=== PATIENT | female | born 1960 | race African-American/Black ===

== ENCOUNTER 2017-07-26 22:34 | Observation (INO) | payer MEDICAID ==
[~2017-07-26] VITALS: Ht 165.1 cm; Wt 80.7 kg
[~2017-07-26 22:34] MED LIST: ALBU18HF2 IH; CYCL10TA7 PO; DOCU-138 PO; FAMO20TA8 PO; FLONAS NS; FOLI-43 PO; FURO-152 PO; LORA10TA7 PO; QUET200T PO
[2017-07-26] MEDS ORDERED: ALBUTEROL (0.083%) 2.5MG/3ML NEB HHN STA (22:57)
[2017-07-26] MEDS ORDERED: IPRATROPIUM BROMIDE (0.02%) 0.5MG/2.5ML NEB HHN STA (22:57)
[2017-07-26] MEDS ORDERED: METHYLPREDNISOLONE SOD SUCC 125 MG/2 ML VIAL IV STA (22:57)
[2017-07-26] MEDS ORDERED: MAGNESIUM 2 G PREMIX 50 ML IV ONE (23:00)
[2017-07-26] MEDS ORDERED: ASPIRIN 81MG TABLET PO ONE (23:00)
[2017-07-26] MEDS ORDERED: NITROGLYCERIN 0.4MG TABLET SL SL PRN (23:00)
[2017-07-26] MEDS ORDERED: ALBUTEROL (0.083%) 2.5MG/3ML NEB ONE (23:17)
[2017-07-26 23:23] LABS: BASOPHILS % 0.7 % (0.0-2.0); EOSINOPHILS % 3.7 % (0.0-5.0); HEMATOCRIT. 39.2 % (36.0-48.0); LYMPHOCYTES % 47.2 % (20.0-50.0); MEAN CORPUSCULAR HEMOGLOBIN 30.7 pg (28.0-32.0); MEAN CORPUSCULAR VOLUME 92.7 fL (81.0-99.0); MEAN PLATELET VOLUME 8.4 fl (7.4-10.4); MONOCYTES % 6.5 % (2.0-8.0); NEUTROPHILS % 41.9 % (40.0-76.0); PLATELET 240 x1000/uL (130-400); RED BLOOD CELL COUNT 4.23 mill/uL (4.2-5.4); RED CELL DISTRIBUTION WIDTH 19.4 % (11.6-14.6)
[2017-07-26 23:30] LABS: CHLORIDE 107 mEq/L (98-107)
[2017-07-26 23:38] LABS: INR 1.1; PARTIAL THROMBOPLASTIN TIME 24.2 sec (23.4-31.0); PROTHROMBIN TIME 10.9 sec (9.4-11.6)
[2017-07-27] MEDS ORDERED: ACETAMINOPHEN 500MG TABLET PO NR (00:30)
[2017-07-27 01:02] LABS: CLARITY URINE CLOUDY (CLEAR); COLOR URINE YELLOW (YELLOW); KETONES URINE TRACE (NEGATIVE); LEUKOCYTE ESTERASE URINE 3+ (NEGATIVE); NITRITE URINE NEGATIVE (NEGATIVE); OCCULT BLOOD URINE NEGATIVE (NEGATIVE); PH URINE 5.5 (4.5-8.0); PROTEIN URINE NEGATIVE (NEGATIVE); SPECIFIC GRAVITY URINE 1.028 (1.005-1.030)
[2017-07-27] MEDS ORDERED: DIPHENHYDRAMINE 25MG CAPSULE PO ONE (02:00)
[2017-07-27] MEDS ORDERED: HYDROCODONE/ACETAMINOPHEN 10/325MG TABLET PO PRN (09:30)
[2017-07-27] MEDS ORDERED: SULFAMETHOXAZOLE/TRIMETHOPRIM 400/80MG TAB PO SCH (09:30)
[2017-07-27] MEDS ORDERED: IPRATROPIUM/ALBUTEROL 0.5-3(2.5)MG/3ML NEB INH PRN (09:30)
[2017-07-27] MEDS ORDERED: NA PHOS,M-B/NA PHOS,DI-BA ENEMA 118ML PR PRN (09:30)
[2017-07-27] MEDS ORDERED: ACETAMINOPHEN 650MG SUPP PR PRN (09:30)
[2017-07-27] MEDS ORDERED: ACETAMINOPHEN 325MG TABLET PO PRN (09:30)
[2017-07-27] MEDS ORDERED: METOCLOPRAMIDE HCL 10MG/2ML VIAL IV SCH (09:30)
[2017-07-27] MEDS ORDERED: MAGNESIUM/ALUMINUM HYDROXIDE/SIMETHICONE 30ML UDC PO PRN (09:30)
[2017-07-27] MEDS ORDERED: DIPHENHYDRAMINE 50MG/ML VIAL IV PRN (09:30)
[2017-07-27] MEDS ORDERED: HYDROCODONE/ACETAMINOPHEN 5/325MG TABLET PO PRN (09:30)
[2017-07-27] MEDS ORDERED: CLONIDINE 0.1MG TABLET PO PRN (09:30)
[2017-07-27] MEDS ORDERED: ACETAMINOPHEN 650MG/20.3ML UDC GT PRN (09:30)
[2017-07-27] MEDS ORDERED: DOCUSATE SODIUM 100MG CAPSULE PO PRN (09:30)
[2017-07-27] MEDS ORDERED: KETOROLAC 15MG/ML VIAL IV SCH (09:45)
[2017-07-27] MEDS ORDERED: MORPHINE SULFATE 4 MG/ML CPJ (NOT FOR IM USE) IV PRN (09:45)
[2017-07-27] MEDS: GUAIFENESIN 200MG/10ML SUGAR FREE UDC PO PRN ×2 (10:27→17:12)
[2017-07-27 10:30] LABS: HCG SCREEN NEGATIVE
[2017-07-27 12:15] VITALS: BP 117/68
[2017-07-27 12:20] VITALS: BP 117/68
[2017-07-27 12:42] VITALS: BP 147/91
[2017-07-27] MEDS ORDERED: METOCLOPRAMIDE HCL 10MG/2ML VIAL IV PRN (15:30)
[2017-07-27 16:25] VITALS: BP 117/89
[2017-07-27] MEDS ORDERED: SULFAMETHOXAZOLE/TRIMETHOPRIM 800/160MG TABLET PO SCH (17:00)
[2017-07-28 11:11] LABS: *AMPHETAMINES SCREEN URINE NEGATIVE (NEGATIVE); *BARBITURATES SCREEN URINE NEGATIVE (NEGATIVE); *BENZODIAZEPINES SCREEN URINE PRESUMTIVE POSITIVE (NEGATIVE); *COCAINE SCREEN URINE NEGATIVE (NEGATIVE); METHADONE URINE SCREEN NEGATIVE (NEGATIVE)
[2017-07-28 11:12] LABS: CANNABINOID URINE SCREEN NEGATIVE (NEGATIVE); OPIATES URINE SCREEN NEGATIVE (NEGATIVE); PHENCYCLIDINE URINE SCREEN NEGATIVE (NEGATIVE)
== END 2017-07-27 17:50 | disposition left against medical advice (07) ==
LOC: ER 22:46 → INTOOBSV 07-27 02:05 → 5WST 07-27 02:05 → EDBEDREQ 07-27 02:14 → ENRESERV 07-27 10:08
PROVIDERS: ADMIT Internal Medicine; ATTEND Internal Medicine
DX: R07.89 Other chest pain (principal); K44.9 Diaphragmatic hernia without obstruction or gangrene; J44.9 Chronic obstructive pulmonary disease, unspecified; I24.9 Acute ischemic heart disease, unspecified; I10 Essential (primary) hypertension; B49 Unspecified mycosis; K21.9 Gastro-esophageal reflux disease without esophagitis; N39.0 Urinary tract infection, site not specified
CPT/HCPCS: 36415; 71045; 74018; 76700; 80053; 80305; 81003; 83690; 83880; 84484; 84703; 85025; 85610; 85730; 87040; 87086; 93005; 94640; 96365; 96375; 97162; 99285; G0378; J1200; J2270; J2930; J3475; J7611; J7620; Q0163

== ENCOUNTER 2019-08-26 15:32 | Emergency (ER) | payer MEDICAID ==
[~2019-08-26] VITALS: Ht 165.1 cm; Wt 68.0 kg
[2019-08-26] MEDS ORDERED: SODIUM CHLORIDE 0.9% 1,000 ML IV ONE (15:38)
[2019-08-26] MEDS ORDERED: METOCLOPRAMIDE HCL 10MG/2ML VIAL IV ONE (15:45)
[2019-08-26] MEDS ORDERED: MORPHINE SULFATE 2 MG/ML CPJ (NOT FOR IM USE) IV ONE (15:45)
[2019-08-26 17:51] LABS: BASOPHILS % 0.5 % (0.0-2.0); EOSINOPHILS % 2.9 % (0.0-5.0); HEMATOCRIT. 38.2 % (36.0-48.0); HEMOGLOBIN. 13.3 g/dL (12.0-16.0); LYMPHOCYTES % 45.7 % (20.0-50.0); MEAN CORPUSCULAR HEMOGLOBIN 34.3 pg (28.0-32.0); MEAN CORPUSCULAR VOLUME 98.5 fL (81.0-99.0); MEAN PLATELET VOLUME 7.7 fl (7.4-10.4); MONOCYTES % 9.8 % (2.0-8.0); NEUTROPHILS % 41.1 % (40.0-76.0); PLATELET 285 x1000/uL (130-400); RED BLOOD CELL COUNT 3.88 mill/uL (4.2-5.4); RED CELL DISTRIBUTION WIDTH 14.8 % (11.6-14.6)
[2019-08-26 17:57] VITALS: BP 124/70
[2019-08-27] MEDS ORDERED: APIX5TAB PO (09:54)
== END 2019-08-26 18:30 | disposition left against medical advice (07) ==
LOC: ER 15:32
DX: R10.9 Unspecified abdominal pain (principal); J44.9 Chronic obstructive pulmonary disease, unspecified; Z90.710 Acquired absence of both cervix and uterus; Z98.890 Other specified postprocedural states; Z79.899 Other long term (current) drug therapy; Z88.6 Allergy status to analgesic agent; Z88.8 Allergy status to other drugs, medicaments and biological substances
CPT/HCPCS: 36415; 85025; 96374; 96375; 99284; J2270; J2765; J7030

== ENCOUNTER 2019-08-26 23:34 | Inpatient (IN) | payer MEDICAID, OTHER ==
[~2019-08-26] VITALS: Ht 162.6 cm; Wt 63.5 kg
[2019-08-27] VITALS (8 sets, daily range): BP systolic 115–142; BP diastolic 54–85
[2019-08-27 00:44] LABS: HEMATOCRIT. 38.5 % (36.0-48.0); HEMOGLOBIN. 13.4 g/dL (12.0-16.0); MEAN CORPUSCULAR VOLUME 97.5 fL (81.0-99.0); RED BLOOD CELL COUNT 3.95 mill/uL (4.2-5.4)
[2019-08-27 00:48] LABS: CHLORIDE 98 mEq/L (98-107)
[2019-08-27] MEDS ORDERED: ASPIRIN 81MG TABLET PO ONE (01:15)
[2019-08-27 01:26] LABS: COLOR URINE YELLOW (YELLOW); KETONES URINE 2+ (NEGATIVE); LEUKOCYTE ESTERASE URINE 1+ (NEGATIVE); NITRITE URINE NEGATIVE (NEGATIVE); OCCULT BLOOD URINE NEGATIVE (NEGATIVE); PH URINE 5.5 (4.5-8.0); PROTEIN URINE 1+ (NEGATIVE); SPECIFIC GRAVITY URINE 1.017 (1.005-1.030)
[2019-08-27 01:28] LABS: CLARITY URINE HAZY (CLEAR)
[2019-08-27] MEDS ORDERED: NITROGLYCERIN 0.4MG TABLET SL SL ONE (01:30)
[2019-08-27 01:34] LABS: *BENZODIAZEPINES SCREEN URINE NEGATIVE (NEGATIVE); *COCAINE SCREEN URINE NEGATIVE (NEGATIVE); METHADONE URINE SCREEN NEGATIVE (NEGATIVE); OPIATES URINE SCREEN PRESUMTIVE POSITIVE (NEGATIVE); PHENCYCLIDINE URINE SCREEN NEGATIVE (NEGATIVE)
[2019-08-27 01:35] LABS: *AMPHETAMINES SCREEN URINE NEGATIVE (NEGATIVE); *BARBITURATES SCREEN URINE NEGATIVE (NEGATIVE); CANNABINOID URINE SCREEN NEGATIVE (NEGATIVE)
[2019-08-27 02:45] LABS: NUCLEATED RED BLOOD CELLS 1 /100 WBC
[2019-08-27] MEDS ORDERED: HYDROCODONE/ACETAMINOPHEN 5/325MG TABLET PO ONE (03:30)
[2019-08-27] MEDS ORDERED: HYDROCODONE/ACETAMINOPHEN 5/325MG TABLET PO PRN (03:45)
[2019-08-27] MEDS: METOCLOPRAMIDE HCL 10MG/2ML VIAL IV ONE ×2 (04:20→04:24)
[2019-08-27] MEDS ORDERED: FAMOTIDINE 20MG/2ML VIAL IV ONE (04:30)
[2019-08-27] MEDS ORDERED: ACETAMINOPHEN 325MG TABLET PO PRN (09:30)
[2019-08-27] MEDS ORDERED: APIX5TAB PO (09:54)
[2019-08-27] MEDS: ENOXAPARIN 40MG/0.4ML SYR SUBCUT SCH (10:00)
[2019-08-27] MEDS ORDERED: MORPHINE SULFATE 2 MG/ML CPJ (NOT FOR IM USE) IV NR (12:28)
[2019-08-27 12:49] LABS: LDL CHOLESTEROL 165 mg/dL (5-100)
[2019-08-27 13:05] LABS: HDL CHOLESTEROL 144 mg/dL (40-59)
[2019-08-27] MEDS: DIPHENHYDRAMINE 50MG/ML VIAL IM PRN (13:43)
[2019-08-27] MEDS ORDERED: REGADENOSON 0.4 MG/5 ML IV NR (17:00)
[2019-08-27] MEDS: PANTOPRAZOLE SODIUM 40 MG/VIAL IV SCH (18:18)
[2019-08-27] MEDS: OXYCODONE HCL/ACETAMINOPHEN 5/325MG TABLET PO PRN ×2 (18:34→22:32)
[2019-08-27] MEDS ORDERED: ONDANSETRON HCL 4MG/2ML INJ IV PRN (20:00)
[2019-08-27] MEDS ORDERED: ATORVASTATIN CALCIUM 20MG TABLET PO SCH (21:00)
[2019-08-27] MEDS ORDERED: PROMETHAZINE/DEXTROMETHORPHAN 6.25-15MG/5ML BOTTLE 120ML PO PRN (21:30)
[2019-08-27] MEDS: METOPROLOL TARTRATE 25MG TABLET PO SCH (22:32)
[2019-08-28] MEDS: OXYCODONE HCL/ACETAMINOPHEN 5/325MG TABLET PO PRN (02:30)
[2019-08-28 04:49] VITALS: BP 99/77
[2019-08-28 06:01] LABS: BASOPHILS % 0.6 % (0.0-2.0); HEMATOCRIT. 42.5 % (36.0-48.0); HEMOGLOBIN. 14.8 g/dL (12.0-16.0); LYMPHOCYTES % 23.3 % (20.0-50.0); MEAN CORPUSCULAR HEMOGLOBIN 34.4 pg (28.0-32.0); MEAN CORPUSCULAR VOLUME 98.7 fL (81.0-99.0); NEUTROPHILS % 64.1 % (40.0-76.0); PLATELET 226 x1000/uL (130-400); RED BLOOD CELL COUNT 4.31 mill/uL (4.2-5.4); RED CELL DISTRIBUTION WIDTH 14.9 % (11.6-14.6)
[2019-08-28 06:04] LABS: CHLORIDE 98 mEq/L (98-107)
[2019-08-28] MEDS: METOPROLOL TARTRATE 25MG TABLET PO SCH (09:00)
[2019-08-28] MEDS ORDERED: THIAMINE HCL 100MG TABLET PO SCH (09:00)
[2019-08-28] MEDS ORDERED: FOLIC ACID 1MG TABLET PO SCH (09:00)
[2019-08-28] MEDS: ENOXAPARIN 40MG/0.4ML SYR SUBCUT SCH (09:00)
[2019-08-28] MEDS ORDERED: ASPIRIN 81MG TABLET PO SCH (09:00)
[2019-08-28] MEDS: DIPHENHYDRAMINE 50MG/ML VIAL IM PRN (13:09)
[2019-08-28] MEDS: PANTOPRAZOLE SODIUM 40 MG/VIAL IV SCH (13:23)
[2019-08-28] MEDS ORDERED: ATOR20TA PO (14:23)
[2019-08-28 16:11] VITALS: BP 96/56
[2019-08-29] MEDS ORDERED: FAMOTIDINE 20MG TABLET PO SCH (09:00)
== END 2019-08-28 17:38 | disposition home or self-care (01) | DRG 203 ==
LOC: ER 23:34 → MICUSO 08-27 02:09 → EDBEDREQ 08-27 02:20 → EDBEDREQTM 08-27 02:20 → 5EST 08-27 10:17
PROVIDERS: ADMIT Internal Medicine; ATTEND Internal Medicine
DX: M94.0 Chondrocostal junction syndrome [Tietze] (principal); I24.9 Acute ischemic heart disease, unspecified; E87.1 Hypo-osmolality and hyponatremia; K29.20 Alcoholic gastritis without bleeding; I25.2 Old myocardial infarction; E78.5 Hyperlipidemia, unspecified; J44.9 Chronic obstructive pulmonary disease, unspecified; F10.10 Alcohol abuse, uncomplicated; I10 Essential (primary) hypertension; Z86.711 Personal history of pulmonary embolism; Z88.8 Allergy status to other drugs, medicaments and biological substances; Z79.899 Other long term (current) drug therapy
CPT/HCPCS: 36415; 71045; 78452; 80048; 80053; 80061; 80305; 81003; 83880; 84443; 84484; 85025; 93005; 93017; 93306; 93970; 99285; A9500; C9113; J1200; J1650; J2270; J2765; J3490